=== PATIENT | female | born 1930 | race Caucasian/White ===

== ENCOUNTER 2017-04-05 07:01 | Inpatient (IN) | payer MEDICARE, OTHER ==
[~2017-04-05] VITALS: Ht 154.9 cm; Wt 50.0 kg
[~2017-04-05 07:01] MED LIST: AMLO2.5T2 PO; ZOF4T PO
[2017-04-05 07:29] LABS: BASOPHILS % (AUTO) 0.2 % (0-1); EOSINOPHILS % (AUTO) 0.2 % (0-6); HEMATOCRIT 40.9 % (35.0-45.0); HEMOGLOBIN 13.9 g/dl (12.0-16.0); LYMPHOCYTES # (AUTO) 0.8 X10'3 (1.1-4.8); LYMPHOCYTES % (AUTO) 5.9 % (21-51); MEAN CORPUSCULAR HEMOGLOBIN 31.9 PG (27.0-31.0); MEAN CORPUSCULAR HGB CONC 33.9 % (33.0-36.5); MEAN PLATELET VOLUME 8.1 FL (7.4-10.4); MONOCYTES # (AUTO) 0.6 X10'3 (0-0.9); MONOCYTES % (AUTO) 4.4 % (2-12); NEUTROPHILS # (AUTO) 12.4 X10'3 (1.8-7.7); NEUTROPHILS % (AUTO) 89.3 % (42-75); PLATELET COUNT 287 X10'3 (140-440); RED BLOOD COUNT 4.35 X10'6 (4.20-5.60); RED CELL DISTRIBUTION WIDTH 14.2 % (11.5-14.5); WHITE BLOOD COUNT 13.9 X10'3 (4.5-11.0)
[2017-04-05 07:41] LABS: PROTHROMBIN TIME 10.3 SECONDS (9.0-12.0)
[2017-04-05 07:44] LABS: ALANINE AMINOTRANSFERASE 22 U/L (12-78); ALBUMIN 3.9 G/DL (3.4-5.0); ALKALINE PHOSPHATASE 85 IU/L (46-116); ANION GAP 10 (8-16); ASPARTATE AMINO TRANSFERASE 22 U/L (10-37); BILIRUBIN,TOTAL 0.7 MG/DL (0.1-1.0); BLOOD UREA NITROGEN 14 MG/DL (7-18); BUN/CREATININE RATIO 18.2 (6.6-38.0); CALCIUM 9.5 MG/DL (8.5-10.1); CHLORIDE 103 MMOL/L (99-107); CREATININE 0.77 MG/DL (0.40-0.90); GLUCOSE 177 MG/DL (70-104); POTASSIUM 3.3 MMOL/L (3.5-5.1); SODIUM 143 MMOL/L (135-145); TOTAL CARBON DIOXIDE 30.3 MMOL/L (24-32); TOTAL PROTEIN 7.9 G/DL (6.4-8.2); eGFR 71 ML/MIN
[2017-04-05] MEDS ORDERED: aspirin 325mg tablet PO ONE (08:10)
[2017-04-05] MEDS ORDERED: heparin 10,000 units/1 ML INJ IV ONE (09:00)
[2017-04-05] MEDS ORDERED: heparin 10,000 units/1 ML INJ IV PRN (09:00)
[2017-04-05 09:18] LABS: PARTIAL THROMBOPLASTIN TIME 24 SECONDS (22-32)
[2017-04-05] MEDS ORDERED: ondansetron/PF 4mg/2ml inj IV ONE (10:10)
[2017-04-05] MEDS ORDERED: NO HOME MEDS (11:19)
[2017-04-05] MEDS: atorvastatin 20mg tablet PO SCH (11:33)
[2017-04-05] MEDS: metoprolol tartrate 50mg tablet PO SCH ×2 (11:33→22:15)
[2017-04-05 11:54] LABS: CHOL/HDL RATIO 3.1 (0.00-4.99); CHOLESTEROL 228 MG/DL (0-200); HDL CHOLESTEROL 73 MG/DL (35-60); LDL CHOLESTEROL 143 MG/DL (50-100); TRIGLYCERIDES 56 MG/DL (20-135)
[2017-04-05 12:17] LABS: CLARITY,URINE Cloudy (Clear); COLOR,URINE Yellow (Yellow); GLUCOSE, URINE Negative (Neg); KETONES,URINE 15 mg/dl (Neg); LEUKOCYTE ESTERASE ,URINE Moderate (Neg); NITRITES, URINE Negative (Neg); OCCULT BLOOD,URINE Negative (Neg); PROTEIN,URINE Negative (Neg)
[2017-04-05 12:19] LABS: UA COLLECTION TYPE OTHER
[2017-04-05 12:26] LABS: BACTERIA,URINE 4+ /HPF (Neg); RBC,URINE NONE SEEN /HPF (0-2); SQUAMOUS EPITHELIAL CELL,UR FEW /LPF (FEW)
[2017-04-05 12:27] LABS: AMORPHOUS PHOSPHATES 1+; MUCUS STRANDS MODERATE /LPF (Neg)
[2017-04-05 12:29] LABS: HYALINE CASTS 0-3 /LPF (NEGATIVE)
[2017-04-05] MEDS ORDERED: potassium chloride 10mEq CAPSULE.SA PO ONE (14:15)
[2017-04-05] MEDS ORDERED: potassium Cl 20 mEq SR tablet PO ONE (14:25)
[2017-04-05] MEDS ORDERED: MESSAGE TO PHARMACY PO ONE (16:15)
[2017-04-05] MEDS ORDERED: dextrose 50%-water 50ml dispensing syringe IV PRN ×2 (16:15)
[2017-04-05] MEDS ORDERED: dextrose ORAL solution 15 GM/59 ML bottle PO PRN ×2 (16:15)
[2017-04-05] MEDS ORDERED: lisinopril 10 MG tablet PO ONE (16:15)
[2017-04-05] MEDS ORDERED: glucagon, human recombinant 1mg kit SUBCUT PRN (16:15)
[2017-04-05] MEDS: ondansetron/PF 4mg/2ml inj IV PRN (17:17)
[2017-04-05 19:00] VITALS: BP 172/100
[2017-04-05 19:15] VITALS: BP 176/70
[2017-04-05] MEDS: insulin glargine (Lantus) pen - multi-dose SQ SCH (21:00)
[2017-04-05] MEDS: Potassium Cl inj 20 MEQ in dextrose 5%-1/2 normal saline 990 ML IV SCH (22:17)
[2017-04-05 23:00] VITALS: BP 178/76
[2017-04-06] VITALS (13 sets, daily range): BP systolic 128–177; BP diastolic 50–86
[2017-04-06] MEDS: ondansetron/PF 4mg/2ml inj IV PRN ×2 (02:12→09:08)
[2017-04-06 06:10] LABS: BASOPHILS % (AUTO) 0 % (0-1); EOSINOPHILS # (AUTO) 0.2 X10'3 (0-0.9); EOSINOPHILS % (AUTO) 0.9 % (0-6); HEMATOCRIT 39.2 % (35.0-45.0); HEMOGLOBIN 13.5 g/dl (12.0-16.0); LYMPHOCYTES # (AUTO) 0.5 X10'3 (1.1-4.8); MEAN CORPUSCULAR HEMOGLOBIN 31.9 PG (27.0-31.0); MEAN CORPUSCULAR HGB CONC 34.5 % (33.0-36.5); MEAN CORPUSCULAR VOLUME 92.6 FL (78-98); MEAN PLATELET VOLUME 8.8 FL (7.4-10.4); MONOCYTES # (AUTO) 1.3 X10'3 (0-0.9); MONOCYTES % (AUTO) 7.2 % (2-12); NEUTROPHILS # (AUTO) 16.1 X10'3 (1.8-7.7); NEUTROPHILS % (AUTO) 88.9 % (42-75); PLATELET COUNT 275 X10'3 (140-440); RED BLOOD COUNT 4.23 X10'6 (4.20-5.60); RED CELL DISTRIBUTION WIDTH 14.1 % (11.5-14.5); WHITE BLOOD COUNT 18.2 X10'3 (4.5-11.0)
[2017-04-06 06:37] LABS: ALANINE AMINOTRANSFERASE 15 U/L (12-78); ALBUMIN 3.6 G/DL (3.4-5.0); ALBUMIN/GLOBULIN RATIO 0.9 (1.1-1.5); ALKALINE PHOSPHATASE 78 IU/L (46-116); ANION GAP 11 (8-16); ASPARTATE AMINO TRANSFERASE 27 U/L (10-37); BILIRUBIN,TOTAL 0.8 MG/DL (0.1-1.0); BLOOD UREA NITROGEN 16 MG/DL (7-18); CALCIUM 8.9 MG/DL (8.5-10.1); CHLORIDE 103 MMOL/L (99-107); CREATININE 0.89 MG/DL (0.40-0.90); GLUCOSE 183 MG/DL (70-104); POTASSIUM 3.6 MMOL/L (3.5-5.1); SODIUM 142 MMOL/L (135-145); TOTAL CARBON DIOXIDE 28.5 MMOL/L (24-32); TOTAL PROTEIN 7.8 G/DL (6.4-8.2); eGFR 60 ML/MIN
[2017-04-06] MEDS ORDERED: hydrALAZINE 20mg/ml inj. IV PRN (07:05)
[2017-04-06 07:22] LABS: BANDS% (MANUAL) 16 % (0-10); LYMPHOCYTES % (MANUAL) 3 % (21-51); MONOCYTES % (MANUAL) 7 % (2-12); NEUTROPHILS % (MANUAL) 74 % (42-75); PLATELET ESTIMATE NORMAL; TOTAL CELLS COUNTED 100
[2017-04-06] MEDS: pantoprazole 40mg Tablet.DR PO SCH (07:30)
[2017-04-06] MEDS: atorvastatin 20mg tablet PO SCH (08:00)
[2017-04-06] MEDS ORDERED: aspirin 325mg tablet PO SCH (08:30)
[2017-04-06] MEDS: Potassium Cl inj 20 MEQ in dextrose 5%-1/2 normal saline 990 ML IV SCH ×2 (08:40→21:10)
[2017-04-06] MEDS: lisinopril 10 MG tablet PO SCH (09:04)
[2017-04-06] MEDS: metoprolol tartrate 50mg tablet PO SCH ×2 (09:04→21:45)
[2017-04-06] MEDS ORDERED: BUPIVAcaine/PF 2.5 mg/ml (0.25%) 30ml vial ONE (14:18)
[2017-04-06] MEDS ORDERED: ceFAZolin 1000mg inj ONE (14:18)
[2017-04-06] MEDS ORDERED: epiNEPHrine 1 mg/ml inj ONE ×2 (14:18→18:14)
[2017-04-06] MEDS ORDERED: LIDOcaine 1% (10mg/ml) 2ml vial ONE (14:59)
[2017-04-06] MEDS ORDERED: fentaNYL/PF 50MCG/1 ML 2ML syringe ONE ×2 (15:00→17:40)
[2017-04-06] MEDS ORDERED: etomidate 2mg/ml inj. ONE (15:02)
[2017-04-06] MEDS ORDERED: rocuronium 10mg/ml inj IV ONE (15:02)
[2017-04-06] MEDS ORDERED: LIDOcaine 2% (20mg/ml) 5ml vial ONE (15:02)
[2017-04-06] MEDS ORDERED: sevoflurane 250ml liquid IH ONE (15:05)
[2017-04-06] MEDS ORDERED: albumin (Human) 5% 250 ML IV solution IV ONE (15:05)
[2017-04-06] MEDS ORDERED: ePHEDrine 50MG/ML INJ. ONE ×2 (15:49→18:14)
[2017-04-06] MEDS ORDERED: albumin (Human) 5% 250ml 0 ML IV ONE (16:03)
[2017-04-06] MEDS ORDERED: cefTRIAXone 1g/NS 100ml IVPB 100 ML IV ONE (16:45)
[2017-04-06] MEDS ORDERED: ringers solution, lacted 1,000 ML IV SCH (18:03)
[2017-04-06 18:05] LABS: ISTAT ANION GAP 14 (8-12); ISTAT BUN 19 mg/dL (6-19); ISTAT CL 100 mmol/L (99-107); ISTAT CREATININE 0.6 mg/dL (0.6-1.1); ISTAT GLUCOSE 164 mg/dL (70-104); ISTAT HGB 12.2 g/dl (12.0-16.0); ISTAT Hct 36 %PCV (35-48); ISTAT IONIZED CALCIUM 1.21 mmol/L (1.03-1.32); ISTAT K 3.3 mmol/L (3.5-5.1); ISTAT NA 140 mmol/L (135-145); ISTAT TOTAL CO2 26 mmol/L (24-32); ISTAT eGFR > 90 ML/MIN; POC BUN/CREATININE RATIO 31.7 (6.6-38.0)
[2017-04-06] MEDS ORDERED: ondansetron/PF 4mg/2ml inj IV PRN (18:05)
[2017-04-06] MEDS ORDERED: morphine 2 MG/ML inj. syringe IV PRN (18:05)
[2017-04-06] MEDS ORDERED: potassium Cl 20 mEq SR tablet PO PRN (18:10)
[2017-04-06] MEDS: K, MAG and/or Phos replacement - Verify level? MC SCH (18:10)
[2017-04-06] MEDS ORDERED: labetalol 5mg/ml 20ml inj. IV ONE (18:14)
[2017-04-06] MEDS ORDERED: neostigmine methylsulfate 1 MG/ML 10ml vial ONE (18:14)
[2017-04-06] MEDS ORDERED: ondansetron/PF 4mg/2ml inj ONE (18:14)
[2017-04-06] MEDS ORDERED: glycopyrrolate 0.2mg/ml inj ONE (18:14)
[2017-04-06] MEDS: insulin glargine (Lantus) pen - multi-dose SQ SCH (21:00)
[2017-04-06] MEDS: heparin, porcine 5000 units/ml vial SQ SCH (21:57)
[2017-04-06] MEDS ORDERED: magnesium 4gm in 100ml NS 100 ML IV PRN (22:00)
[2017-04-06] MEDS ORDERED: magnesium Cl slow-release 64mg tablet PO PRN (22:00)
[2017-04-06] MEDS ORDERED: potassium Cl 40MEQ/250ML bag 250 ML IV PRN (22:00)
[2017-04-06] MEDS ORDERED: magnesium 2GM in 50ml NS 50 ML IV PRN (22:00)
[2017-04-06] MEDS ORDERED: morphine 2 MG/ML inj. syringe IV ONE (23:15)
[2017-04-07] VITALS (15 sets, daily range): BP systolic 130–180; BP diastolic 46–69
[2017-04-07] MEDS: insulin Lispro (HumaLOG) vial - multi-dose SQ SCH ×2 (02:33→11:26)
[2017-04-07 03:02] LABS: BASOPHILS % (AUTO) 0.1 % (0-1); EOSINOPHILS % (AUTO) 0 % (0-6); HEMATOCRIT 35.3 % (35.0-45.0); HEMOGLOBIN 11.9 g/dl (12.0-16.0); LYMPHOCYTES # (AUTO) 0.3 X10'3 (1.1-4.8); MEAN CORPUSCULAR HEMOGLOBIN 31.7 PG (27.0-31.0); MEAN CORPUSCULAR HGB CONC 33.6 % (33.0-36.5); MEAN CORPUSCULAR VOLUME 94.2 FL (78-98); MEAN PLATELET VOLUME 8.9 FL (7.4-10.4); MONOCYTES # (AUTO) 0.9 X10'3 (0-0.9); MONOCYTES % (AUTO) 11.1 % (2-12); NEUTROPHILS % (AUTO) 84.8 % (42-75); PLATELET COUNT 232 X10'3 (140-440); RED BLOOD COUNT 3.75 X10'6 (4.20-5.60); RED CELL DISTRIBUTION WIDTH 14.4 % (11.5-14.5); WHITE BLOOD COUNT 8.2 X10'3 (4.5-11.0)
[2017-04-07 03:06] LABS: ALANINE AMINOTRANSFERASE 21 U/L (12-78); ALBUMIN 2.9 G/DL (3.4-5.0); ALKALINE PHOSPHATASE 46 IU/L (46-116); ANION GAP 8 (8-16); ASPARTATE AMINO TRANSFERASE 23 U/L (10-37); BILIRUBIN,TOTAL 0.6 MG/DL (0.1-1.0); BLOOD UREA NITROGEN 18 MG/DL (7-18); BUN/CREATININE RATIO 26.5 (6.6-38.0); CALCIUM 7.8 MG/DL (8.5-10.1); CHLORIDE 105 MMOL/L (99-107); CREATININE 0.68 MG/DL (0.40-0.90); GLUCOSE 158 MG/DL (70-104); MAGNESIUM 1.6 MG/DL (1.5-2.4); PHOSPHORUS 2.5 MG/DL (2.3-4.5); POTASSIUM 3.4 MMOL/L (3.5-5.1); SODIUM 140 MMOL/L (135-145); TOTAL CARBON DIOXIDE 27.4 MMOL/L (24-32); TOTAL PROTEIN 5.8 G/DL (6.4-8.2); eGFR 82 ML/MIN
[2017-04-07] MEDS ORDERED: potassium Cl 40MEQ/250ML bag 250 ML IV ONE (03:47)
[2017-04-07] MEDS: potassium Cl 40MEQ/250ML bag 250 ML IV PRN ×2 (04:05→11:09)
[2017-04-07] MEDS: K, MAG and/or Phos replacement - Verify level? MC SCH (08:00)
[2017-04-07] MEDS: lisinopril 10 MG tablet PO SCH (08:14)
[2017-04-07] MEDS: atorvastatin 20mg tablet PO SCH (08:14)
[2017-04-07] MEDS: pantoprazole 40mg Tablet.DR PO SCH (08:14)
[2017-04-07] MEDS: heparin, porcine 5000 units/ml vial SQ SCH ×2 (08:14→19:56)
[2017-04-07] MEDS: metoprolol tartrate 50mg tablet PO SCH ×2 (10:44→19:55)
[2017-04-07] MEDS ORDERED: morphine 4 MG/ML inj SYRINge ONE (10:54)
[2017-04-07] MEDS: aspirin 81mg tab.chew PO SCH (10:56)
[2017-04-07] MEDS ORDERED: morphine 2 MG/ML inj. syringe IV PRN (13:40)
[2017-04-07] MEDS: Potassium Cl inj 20 MEQ in dextrose 5%-1/2 normal saline 990 ML IV SCH (14:14)
[2017-04-07] MEDS: lactobacillus rhamnosus 10,000 MMU CELLS/CAPSULE PO SCH (16:51)
[2017-04-07] MEDS: cefTRIAXone 1g/NS 100ml IVPB 100 ML IV SCH (17:04)
[2017-04-07] MEDS: insulin glargine (Lantus) pen - multi-dose SQ SCH (22:36)
[2017-04-08] MEDS: Potassium Cl inj 20 MEQ in dextrose 5%-1/2 normal saline 990 ML IV SCH ×2 (02:56→13:54)
[2017-04-08 06:24] LABS: BASOPHILS % (AUTO) 0.1 % (0-1); EOSINOPHILS % (AUTO) 0.1 % (0-6); HEMATOCRIT 30.4 % (35.0-45.0); HEMOGLOBIN 10.3 g/dl (12.0-16.0); LYMPHOCYTES # (AUTO) 0.7 X10'3 (1.1-4.8); LYMPHOCYTES % (AUTO) 7.8 % (21-51); MEAN CORPUSCULAR HEMOGLOBIN 31.6 PG (27.0-31.0); MEAN CORPUSCULAR HGB CONC 33.9 % (33.0-36.5); MEAN CORPUSCULAR VOLUME 93.2 FL (78-98); MEAN PLATELET VOLUME 9.1 FL (7.4-10.4); MONOCYTES # (AUTO) 1.3 X10'3 (0-0.9); MONOCYTES % (AUTO) 13.8 % (2-12); NEUTROPHILS # (AUTO) 7.2 X10'3 (1.8-7.7); NEUTROPHILS % (AUTO) 78.2 % (42-75); PLATELET COUNT 198 X10'3 (140-440); RED BLOOD COUNT 3.26 X10'6 (4.20-5.60); RED CELL DISTRIBUTION WIDTH 14.4 % (11.5-14.5); WHITE BLOOD COUNT 9.3 X10'3 (4.5-11.0)
[2017-04-08 06:46] LABS: MAGNESIUM 1.9 MG/DL (1.5-2.4); POTASSIUM 4.3 MMOL/L (3.5-5.1)
[2017-04-08 07:04] VITALS: BP 137/54
[2017-04-08] MEDS: lactobacillus rhamnosus 10,000 MMU CELLS/CAPSULE PO SCH ×2 (07:30→20:50)
[2017-04-08] MEDS: K, MAG and/or Phos replacement - Verify level? MC SCH (07:49)
[2017-04-08] MEDS: insulin Lispro (HumaLOG) vial - multi-dose SQ SCH ×3 (08:21→17:26)
[2017-04-08] MEDS: cefTRIAXone 1g/NS 100ml IVPB 100 ML IV SCH (08:22)
[2017-04-08] MEDS: aspirin 81mg tab.chew PO SCH (08:22)
[2017-04-08] MEDS: atorvastatin 20mg tablet PO SCH (08:22)
[2017-04-08] MEDS: heparin, porcine 5000 units/ml vial SQ SCH ×2 (08:23→20:50)
[2017-04-08] MEDS: pantoprazole 40mg Tablet.DR PO SCH (08:23)
[2017-04-08] MEDS: metoprolol tartrate 50mg tablet PO SCH ×2 (08:23→20:49)
[2017-04-08] MEDS: lisinopril 10 MG tablet PO SCH (08:23)
[2017-04-08] MEDS ORDERED: POTASSIUM 40MEQ/500ML NS ***PERIPHERAL LINE REPLACE IV PRN (11:30)
[2017-04-08 11:50] VITALS: BP 152/49
[2017-04-08 19:30] VITALS: BP 152/46
[2017-04-08 20:40] VITALS: BP 160/73
[2017-04-08] MEDS ORDERED: metoprolol tartrate 25mg tablet PO ONE (20:45)
[2017-04-08] MEDS ORDERED: aspirin 325mg tablet PO ONE (21:50)
[2017-04-08] MEDS: insulin glargine (Lantus) pen - multi-dose SQ SCH (22:06)
[2017-04-09] VITALS: BP 106/59
[2017-04-09] MEDS: Potassium Cl inj 20 MEQ in dextrose 5%-1/2 normal saline 990 ML IV SCH ×2 (02:51→16:10)
[2017-04-09 03:21] LABS: ALANINE AMINOTRANSFERASE 19 U/L (12-78); ALBUMIN 2.2 G/DL (3.4-5.0); ALBUMIN/GLOBULIN RATIO 0.7 (1.1-1.5); ALKALINE PHOSPHATASE 44 IU/L (46-116); ANION GAP 8 (8-16); ASPARTATE AMINO TRANSFERASE 19 U/L (10-37); BILIRUBIN,TOTAL 0.5 MG/DL (0.1-1.0); BLOOD UREA NITROGEN 13 MG/DL (7-18); BUN/CREATININE RATIO 25.5 (6.6-38.0); CALCIUM 7.9 MG/DL (8.5-10.1); CHLORIDE 109 MMOL/L (99-107); CREATININE 0.51 MG/DL (0.40-0.90); GLUCOSE 98 MG/DL (70-104); MAGNESIUM 1.9 MG/DL (1.5-2.4); POTASSIUM 3.8 MMOL/L (3.5-5.1); SODIUM 143 MMOL/L (135-145); TOTAL CARBON DIOXIDE 26.1 MMOL/L (24-32); TOTAL PROTEIN 5.4 G/DL (6.4-8.2); eGFR > 90 ML/MIN
[2017-04-09 03:22] LABS: TROPONIN I 0.34 NG/ML (0.0-0.05)
[2017-04-09 03:28] LABS: BASOPHILS % (AUTO) 0.1 % (0-1); EOSINOPHILS % (AUTO) 0.3 % (0-6); HEMATOCRIT 27.9 % (35.0-45.0); HEMOGLOBIN 9.5 g/dl (12.0-16.0); LYMPHOCYTES # (AUTO) 0.8 X10'3 (1.1-4.8); LYMPHOCYTES % (AUTO) 8.6 % (21-51); MEAN CORPUSCULAR HEMOGLOBIN 31.7 PG (27.0-31.0); MEAN CORPUSCULAR HGB CONC 34.1 % (33.0-36.5); MEAN CORPUSCULAR VOLUME 92.8 FL (78-98); MEAN PLATELET VOLUME 9.3 FL (7.4-10.4); MONOCYTES # (AUTO) 0.9 X10'3 (0-0.9); MONOCYTES % (AUTO) 10.6 % (2-12); NEUTROPHILS % (AUTO) 80.4 % (42-75); PLATELET COUNT 196 X10'3 (140-440); RED CELL DISTRIBUTION WIDTH 13.9 % (11.5-14.5); WHITE BLOOD COUNT 8.7 X10'3 (4.5-11.0)
[2017-04-09 03:35] VITALS: BP 139/52
[2017-04-09 07:40] VITALS: BP 113/50
[2017-04-09] MEDS: K, MAG and/or Phos replacement - Verify level? MC SCH (08:00)
[2017-04-09] MEDS: metoprolol tartrate 50mg tablet PO SCH ×2 (08:00→20:42)
[2017-04-09] MEDS: cefTRIAXone 1g/NS 100ml IVPB 100 ML IV SCH (10:13)
[2017-04-09] MEDS: atorvastatin 20mg tablet PO SCH (10:14)
[2017-04-09] MEDS: lactobacillus rhamnosus 10,000 MMU CELLS/CAPSULE PO SCH ×2 (10:16→20:41)
[2017-04-09] MEDS: pantoprazole 40mg Tablet.DR PO SCH (10:16)
[2017-04-09] MEDS: lisinopril 10 MG tablet PO SCH (10:17)
[2017-04-09] MEDS: aspirin 81mg tab.chew PO SCH (10:17)
[2017-04-09] MEDS: heparin, porcine 5000 units/ml vial SQ SCH ×2 (10:23→20:52)
[2017-04-09] MEDS ORDERED: LORazepam 2 mg/ml vial IV PRN (13:40)
[2017-04-09] MEDS: morphine 4 MG/ML inj SYRINge IV PRN (19:14)
[2017-04-09 20:00] VITALS: BP 164/61
[2017-04-09] MEDS: insulin glargine (Lantus) pen - multi-dose SQ SCH (21:00)
[2017-04-10] MEDS: Potassium Cl inj 20 MEQ in dextrose 5%-1/2 normal saline 990 ML IV SCH ×2 (05:12→18:00)
[2017-04-10 05:56] LABS: BASOPHILS % (AUTO) 0.3 % (0-1); EOSINOPHILS # (AUTO) 0.2 X10'3 (0-0.9); EOSINOPHILS % (AUTO) 2.4 % (0-6); HEMATOCRIT 29.1 % (35.0-45.0); LYMPHOCYTES # (AUTO) 1.2 X10'3 (1.1-4.8); LYMPHOCYTES % (AUTO) 13.7 % (21-51); MEAN CORPUSCULAR HEMOGLOBIN 31.8 PG (27.0-31.0); MEAN CORPUSCULAR HGB CONC 34.2 % (33.0-36.5); MEAN CORPUSCULAR VOLUME 92.9 FL (78-98); MONOCYTES # (AUTO) 0.9 X10'3 (0-0.9); MONOCYTES % (AUTO) 11.1 % (2-12); NEUTROPHILS # (AUTO) 6.2 X10'3 (1.8-7.7); NEUTROPHILS % (AUTO) 72.5 % (42-75); PLATELET COUNT 225 X10'3 (140-440); RED BLOOD COUNT 3.13 X10'6 (4.20-5.60); RED CELL DISTRIBUTION WIDTH 14.2 % (11.5-14.5); WHITE BLOOD COUNT 8.5 X10'3 (4.5-11.0)
[2017-04-10 06:19] LABS: MAGNESIUM 1.9 MG/DL (1.5-2.4); POTASSIUM 3.7 MMOL/L (3.5-5.1)
[2017-04-10] MEDS: K, MAG and/or Phos replacement - Verify level? MC SCH (06:43)
[2017-04-10] MEDS: heparin, porcine 5000 units/ml vial SQ SCH ×2 (08:15→22:39)
[2017-04-10] MEDS: lisinopril 10 MG tablet PO SCH (08:15)
[2017-04-10] MEDS: metoprolol tartrate 50mg tablet PO SCH ×2 (08:17→22:46)
[2017-04-10] MEDS: atorvastatin 20mg tablet PO SCH (08:19)
[2017-04-10] MEDS: pantoprazole 40mg Tablet.DR PO SCH (08:19)
[2017-04-10] MEDS: lactobacillus rhamnosus 10,000 MMU CELLS/CAPSULE PO SCH ×2 (08:19→22:39)
[2017-04-10] MEDS: aspirin 81mg tab.chew PO SCH (08:20)
[2017-04-10] MEDS: cefTRIAXone 1g/NS 100ml IVPB 100 ML IV SCH (08:21)
[2017-04-10 08:59] VITALS: BP 167/53
[2017-04-10] MEDS: insulin Lispro (HumaLOG) vial - multi-dose SQ SCH ×2 (10:20→16:52)
[2017-04-10 12:00] VITALS: BP 167/51
[2017-04-10] MEDS: morphine 4 MG/ML inj SYRINge IV PRN (14:19)
[2017-04-10 19:00] VITALS: BP 158/65
[2017-04-10] MEDS: ondansetron/PF 4mg/2ml inj IV PRN (19:37)
[2017-04-10] MEDS: insulin glargine (Lantus) pen - multi-dose SQ SCH (22:46)
[2017-04-10 23:30] VITALS: BP 175/54
[2017-04-11] MEDS: Potassium Cl inj 20 MEQ in dextrose 5%-1/2 normal saline 990 ML IV SCH ×2 (04:59→16:36)
[2017-04-11] MEDS: morphine 4 MG/ML inj SYRINge IV PRN ×2 (05:10→22:46)
[2017-04-11 06:20] LABS: MAGNESIUM 1.7 MG/DL (1.5-2.4); POTASSIUM 3.4 MMOL/L (3.5-5.1)
[2017-04-11 08:00] VITALS: BP 142/60
[2017-04-11] MEDS: K, MAG and/or Phos replacement - Verify level? MC SCH (08:00)
[2017-04-11] MEDS: lactobacillus rhamnosus 10,000 MMU CELLS/CAPSULE PO SCH ×2 (08:17→21:51)
[2017-04-11] MEDS: lisinopril 10 MG tablet PO SCH (08:18)
[2017-04-11] MEDS: heparin, porcine 5000 units/ml vial SQ SCH ×2 (08:18→21:50)
[2017-04-11] MEDS: pantoprazole 40mg Tablet.DR PO SCH (08:20)
[2017-04-11] MEDS: aspirin 81mg tab.chew PO SCH (08:20)
[2017-04-11] MEDS: metoprolol tartrate 50mg tablet PO SCH ×2 (08:20→21:50)
[2017-04-11] MEDS: atorvastatin 20mg tablet PO SCH (08:20)
[2017-04-11] MEDS: cefTRIAXone 1g/NS 100ml IVPB 100 ML IV SCH (08:21)
[2017-04-11] MEDS: potassium Cl 20 mEq SR tablet PO PRN ×2 (08:59→12:38)
[2017-04-11] MEDS: insulin Lispro (HumaLOG) vial - multi-dose SQ SCH (10:24)
[2017-04-11 15:30] VITALS: BP 173/74
[2017-04-11] MEDS ORDERED: potassium Cl 40MEQ/NS 500ml 500 ML IV PRN ×2 (18:40)
[2017-04-11] MEDS ORDERED: potassium Cl 20 mEq SR tablet PO PRN ×2 (18:40)
[2017-04-11 19:00] VITALS: BP 178/68
[2017-04-11] MEDS: insulin glargine (Lantus) pen - multi-dose SQ SCH (21:57)
[2017-04-12] MEDS: ondansetron/PF 4mg/2ml inj IV PRN (03:52)
[2017-04-12] MEDS: morphine 4 MG/ML inj SYRINge IV PRN (03:53)
[2017-04-12 06:40] LABS: MAGNESIUM 1.8 MG/DL (1.5-2.4); POTASSIUM 3.4 MMOL/L (3.5-5.1)
[2017-04-12 07:00] VITALS: BP 160/60
[2017-04-12] MEDS: pantoprazole 40mg Tablet.DR PO SCH (07:09)
[2017-04-12] MEDS: heparin, porcine 5000 units/ml vial SQ SCH (08:00)
[2017-04-12] MEDS: K, MAG and/or Phos replacement - Verify level? MC SCH (08:00)
[2017-04-12] MEDS: cefTRIAXone 1g/NS 100ml IVPB 100 ML IV SCH (08:33)
[2017-04-12] MEDS: lactobacillus rhamnosus 10,000 MMU CELLS/CAPSULE PO SCH (08:33)
[2017-04-12] MEDS: atorvastatin 20mg tablet PO SCH (08:33)
[2017-04-12] MEDS: metoprolol tartrate 50mg tablet PO SCH (08:34)
[2017-04-12] MEDS: lisinopril 10 MG tablet PO SCH (08:34)
[2017-04-12] MEDS: aspirin 81mg tab.chew PO SCH (08:36)
[2017-04-12 11:00] VITALS: BP 152/59
[2017-04-12] MEDS: Potassium Cl inj 20 MEQ in dextrose 5%-1/2 normal saline 990 ML IV SCH (11:20)
== END 2017-04-12 12:45 | DRG 854 ==
LOC: ER 07:02 → ED HOLD 13:32 → EDBEDREQ 18:10 → PCU 3S 19:11 → CICU 2S 04-06 19:08 → SUR 3N 04-07 12:56
PROVIDERS: ADMIT Internal Medicine; ATTEND Internal Medicine
PROC: 0DN80ZZ Release Small Intestine, Open Approach (ICD-10-PCS; 2017-04-06)
PROC: 0D9670Z Drainage of Stomach with Drainage Device, Via Natural or Artificial Opening (ICD-10-PCS; 2017-04-06)
PROC: 0DJW4ZZ Inspection of Peritoneum, Percutaneous Endoscopic Approach (ICD-10-PCS; 2017-04-06)
PROC: 0DNU0ZZ Release Omentum, Open Approach (ICD-10-PCS; principal; 2017-04-06 15:00)
DX: A41.9 Sepsis, unspecified organism (principal); K56.50 Intestinal adhesions [bands], unspecified as to partial versus complete obstruction; E11.9 Type 2 diabetes mellitus without complications; F03.90 Unspecified dementia, unspecified severity, without behavioral disturbance, psychotic disturbance, mood disturbance, and anxiety; I08.3 Combined rheumatic disorders of mitral, aortic and tricuspid valves; Z78.1 Physical restraint status; N39.0 Urinary tract infection, site not specified; I44.7 Left bundle-branch block, unspecified; E87.6 Hypokalemia; E78.5 Hyperlipidemia, unspecified; I10 Essential (primary) hypertension; Z66 Do not resuscitate; Z53.31 Laparoscopic surgical procedure converted to open procedure; Z79.82 Long term (current) use of aspirin; Z79.899 Other long term (current) drug therapy; Z90.49 Acquired absence of other specified parts of digestive tract
CPT/HCPCS: 36415; 71045; 74018; 74176; 80047; 80053; 80061; 81001; 82948; 83036; 83605; 83735; 84100; 84132; 84484; 85025; 85610; 85730; 87070; 87077; 87088; 87186; 93005; 93306; 96374; 96375; 97110; 97116; 97161; 97530; 99285; A4315; A6449; A7000; J0171; J0360; J0690; J0696; J1644; J1815; J2001; J2060; J2270; J2405; J2710; J3010; J3480; J3490; J7030; J7120; P9045

== ENCOUNTER 2019-10-15 19:23 | Emergency (ER) | payer MEDICARE, MEDICAID ==
[~2019-10-15] VITALS: Ht 157.5 cm; Wt 50.0 kg
[~2019-10-15 19:23] MED LIST changes: -AMLO2.5T2 PO; +NO HOME MEDS; -ZOF4T PO
[2019-10-15] MEDS ORDERED: iohexol 350MG/ML 100ml bottle IV ONE (19:26)
--- NOTE | 2019-10-15 19:29 | NUR ---
dr. urrutia and elina at bedside
--- NOTE | 2019-10-15 19:37 | NUR ---
Responded to stroke alert, pt has arrived from sn[facility], she has baseline A&O x1, had episode of nonresponsiveness, she is now moving all 4 extremities equal, no focal findings of stroke. Does appear frightened, states name as Izzy. Dr. Miner in to see, will stand down on stroke alert.
[2019-10-15 19:48] LABS: BASOPHILS # (AUTO) 0.1 X10'3 (0-0.2); BASOPHILS % (AUTO) 1.4 % (0-1); EOSINOPHILS # (AUTO) 0.2 X10'3 (0-0.9); EOSINOPHILS % (AUTO) 2.6 % (0-6); HEMATOCRIT 38.8 % (35.0-45.0); HEMOGLOBIN 13.1 g/dl (12.0-16.0); LYMPHOCYTES # (AUTO) 1.9 X10'3 (1.1-4.8); MEAN CORPUSCULAR HEMOGLOBIN 32.8 PG (27.0-31.0); MEAN CORPUSCULAR HGB CONC 33.7 g/dL (33.0-36.5); MEAN CORPUSCULAR VOLUME 97.1 FL (78-98); MEAN PLATELET VOLUME 8.3 FL (7.4-10.4); MONOCYTES # (AUTO) 0.9 X10'3 (0-0.9); MONOCYTES % (AUTO) 11.4 % (2-12); NEUTROPHILS # (AUTO) 4.5 X10'3 (1.8-7.7); NEUTROPHILS % (AUTO) 59.6 % (42-75); PLATELET COUNT 268 X10'3 (140-440); RED CELL DISTRIBUTION WIDTH 14.3 % (11.5-14.5); WHITE BLOOD COUNT 7.5 X10'3 (4.5-11.0)
[2019-10-15 19:53] LABS: PARTIAL THROMBOPLASTIN TIME 23 SECONDS (22-32)
[2019-10-15 20:04] LABS: ALANINE AMINOTRANSFERASE 13 U/L (12-78); ALBUMIN 3.4 G/DL (3.4-5.0); ALBUMIN/GLOBULIN RATIO 0.9 (1.1-1.5); ALKALINE PHOSPHATASE 82 IU/L (46-116); ANION GAP 5 (8-16); BILIRUBIN,TOTAL 0.8 MG/DL (0.1-1.0); BLOOD UREA NITROGEN 20 MG/DL (7-18); BUN/CREATININE RATIO 26.7 (6.6-38.0); CALCIUM 9.2 MG/DL (8.5-10.1); CHLORIDE 107 MMOL/L (99-107); CREATININE 0.75 MG/DL (0.40-0.90); GLUCOSE 122 MG/DL (70-104); SODIUM 142 MMOL/L (135-145); TOTAL CARBON DIOXIDE 30.4 MMOL/L (24-32); TOTAL PROTEIN 7.3 G/DL (6.4-8.2); eGFR 73 ML/MIN
[2019-10-15 20:08] LABS: ASPARTATE AMINO TRANSFERASE 21 U/L (10-37); POTASSIUM 4.7 MMOL/L (3.5-5.1)
[2019-10-15 20:08] LABS: COLOR,URINE YELLOW (Yellow); GLUCOSE, URINE NEGATIVE (Neg); KETONES,URINE NEGATIVE (Neg); LEUKOCYTE ESTERASE ,URINE SMALL (Neg); NITRITES, URINE POSITIVE (Neg); OCCULT BLOOD,URINE NEGATIVE (Neg); PROTEIN,URINE NEGATIVE (Neg); UROBILINOGEN,URINE 0.2 E.U/dL (0.2-1.0)
[2019-10-15 20:15] LABS: CLARITY,URINE SLIGHTLY CLOUDY (Clear); UA COLLECTION TYPE STRAIGHT CATH
[2019-10-15 20:16] LABS: BACTERIA,URINE 3+ /HPF (Neg); RBC,URINE NONE SEEN /HPF (0-2); SQUAMOUS EPITHELIAL CELL,UR FEW /LPF (FEW); WBC CLUMPS,URINE FEW /HPF (NEGATIVE)
[2019-10-15] MEDS ORDERED: CefTRIAXone/D5W-Rocephin 1gm 50 ML IV ONE (20:20)
[2019-10-15 20:21] LABS: URINE AMPHETAMINE SCREEN NEGATIVE (Neg); URINE BARBITUATE SCREEN NEGATIVE (Neg); URINE BENZODIAZEPINES SCREEN NEGATIVE (Neg); URINE CANNABINOID SCREEN NEGATIVE (Neg); URINE COCAINE SCREEN NEGATIVE (Neg); URINE METHADONE SCREEN NEGATIVE (Neg); URINE OPIATE SCREEN NEGATIVE (Neg); URINE PHENCYCLIDINE SCREEN NEGATIVE (Neg)
[2019-10-15] MEDS ORDERED: CEPH500C5 PO (20:58)
--- NOTE | 2019-10-15 21:19 | NUR ---
Called report to care [facility], gave discharged information and Rx infomation to staff at [facility].
[2019-10-15 21:24] VITALS: BP 158/81
== END 2019-10-15 21:22 | disposition home or self-care (01) ==
LOC: ER 19:24
DX: N39.0 Urinary tract infection, site not specified (principal); I10 Essential (primary) hypertension; E11.9 Type 2 diabetes mellitus without complications; Z98.890 Other specified postprocedural states; Z79.899 Other long term (current) drug therapy
CPT/HCPCS: 36415; 70450; 71045; 80053; 80305; 81001; 85025; 85610; 85730; 86885; 86900; 86901; 87077; 87088; 87186; 93005; 96365; 99285; J0696; Q9967